=== PATIENT | male | born 2000 | race African-American/Black ===

== ENCOUNTER 2024-02-06 09:28 | Emergency (ER) | payer OTHER, SELFPAY | END 2024-02-06 10:53 | disposition home or self-care (01) | LOC: ERS 09:28 | DX: M62.830 Muscle spasm of back (principal); W21.05XA Struck by basketball, initial encounter; Y93.67 Activity, basketball | CPT/HCPCS: 99282 ==

== ENCOUNTER 2024-02-22 07:26 | Emergency (ER) | payer SELFPAY ==
[2024-02-22 08:44] LABS: Bacteria/HPF None Seen HPF (None Seen); Bilirubin Negative (Negative); Blood, Urine Negative (Negative); CAUTI Indications for Culture Pelvic or flank pain; Clarity Clear (Clear); Glucose, Urine (Dipstick) Normal (Negative); Ketone, Urine Negative (Negative); Leukocyte 25 Leu/uL (Negative); Nitrite Negative (Negative); Protein, Urine (Dipstick) Negative (Neg-Trace); RBC/HPF 0-3 HPF (0-3); Specific Gravity, Urine 1.021 (1.002-1.036); Squamous Epithelial None Seen HPF (0-3); pH, Urine 6.5 (5.0-9.0)
[2024-02-22 08:45] LABS: Urine Culture Reflex No No
== END 2024-02-22 08:38 | disposition home or self-care (01) ==
LOC: ERS 07:26
DX: R11.2 Nausea with vomiting, unspecified (principal); F17.290 Nicotine dependence, other tobacco product, uncomplicated
CPT/HCPCS: 81001; 99283